=== PATIENT | female | born 1960 | race Caucasian/White ===

== ENCOUNTER 2018-11-22 13:45 | Emergency (ER) | payer OTHER ==
[2018-11-22] MEDS ORDERED: SODIUM CHLORIDE 0.9% FLUSH 10 ML SOL IV PRN (14:02)
[2018-11-22] MEDS ORDERED: NITROGLYCERIN 0.4 MG TAB SL PRN (14:02)
[2018-11-22] MEDS ORDERED: ASPIRIN 81 MG CHEWABLE CTB PO STA (14:02)
[2018-11-22] MEDS ORDERED: ASPIRIN 81 MG CHEWABLE CTB ONE (14:04)
[2018-11-22] MEDS ORDERED: NITROGLYCERIN 0.4 MG TAB SL ONE (14:04)
[2018-11-22 14:08] LABS: BASOPHILS % (AUTO) 1 % (0-3); EOSINOPHILS % (AUTO) 1 % (0-9); HEMATOCRIT 45 % (35-47); HEMOGLOBIN 14.4 gm/dl (12.0-15.5); LYMPHOCYTES % (AUTO) 37.5 % (10-50); MEAN CORPUSCULAR VOLUME 88 fL (81-99); MONOCYTES % (AUTO) 8.8 % (0-12); NEUTROPHILS % (AUTO) 52.3 % (37-80)
[2018-11-22 14:15] VITALS: TEMP 97.9
[2018-11-22 14:20] LABS: INR 0.98 (0.86-1.12)
[2018-11-22 14:21] LABS: BLOOD UREA NITROGEN 17 mg/dl (7-18); CALCIUM 9.3 mg/dl (8.5-10.1); CARBON DIOXIDE 30.5 mEq/L (21-32); CHLORIDE 101 mMol/L (98-107); CREATININE 0.85 mg/dl (0.60-1.00); GLUCOSE 84 mg/dl (74-106); POTASSIUM 4.1 mMol/L (3.5-5.1); SODIUM 140 mMol/L (136-145); TROP I < 0.017 ng/ml (0.000-0.056)
[2018-11-22] MEDS ORDERED: LIDOCAINE HCL 2% (VISCOUS) 15 ML SOL ONE (14:24)
[2018-11-22] MEDS ORDERED: ALUMINUM/MAGNESIUM 30 ML SUS ONE (14:24)
[2018-11-22] MEDS ORDERED: LIDOCAINE HCL 2% (VISCOUS) 15 ML SOL MT ONE (14:25)
[2018-11-22] MEDS ORDERED: ALUMINUM/MAGNESIUM 30 ML SUS PO ONE (14:25)
[2018-11-22 15:24] VITALS: BP 136/74; PULSE 59; RESP 18; O2SAT 95
== END 2018-11-22 15:10 | disposition home or self-care (01) | DRG 392 ==
LOC: ED 13:45
DX: K21.9 Gastro-esophageal reflux disease without esophagitis (principal); R07.89 Other chest pain; R53.1 Weakness
CPT/HCPCS: 71045; 80048; 84484; 85025; 85610; 85730; 93005; 99284; 99291; A9270-GY